=== PATIENT | male | born 1950 | race Caucasian/White ===

== ENCOUNTER 2017-09-04 10:18 | Observation (INO) ==
[2017-09-04] MEDS ORDERED: PROMETHAZINE INJ 25 MG in SODIUM CHLORIDE 0.9% 50 ML IV PRN (11:11)
[2017-09-04] MEDS ORDERED: chlorproMAZINE INJ 25 MG in SODIUM CHLORIDE 0.9% 100 ML IV PRN (11:11)
[2017-09-04] MEDS ORDERED: MYLANTA/LIDO VISC 2:1 300 ML BOTTLE SWISH/SPIT PRN (11:11)
[2017-09-04] MEDS ORDERED: LOPERAMIDE 2 MG CAPSULE PO PRN ×2 (11:11)
[2017-09-04] MEDS ORDERED: MAGNESIUM HYDROXIDE SUSP 30 ML UDCUP PO PRN (11:11)
[2017-09-04] MEDS ORDERED: ALPRAZolam 0.25 MG TABLET PO PRN (11:11)
[2017-09-04] MEDS ORDERED: chlorproMAZINE INJ 50 MG in SODIUM CHLORIDE 0.9% 100 ML IV PRN (11:11)
[2017-09-04] MEDS ORDERED: LACTULOSE 20 GM/30 ML UDCUP PO PRN (11:11)
[2017-09-04] MEDS ORDERED: chlorproMAZINE 25 MG TABLET PO PRN (11:11)
[2017-09-04] MEDS ORDERED: ONDANSETRON 4 MG/2 ML VIAL IV PRN (11:11)
[2017-09-04] MEDS ORDERED: diphenhydrAMINE CAP 25 MG CAPSULE PO PRN (11:11)
[2017-09-04] MEDS ORDERED: TEMAZEPAM 7.5 MG CAPSULE PO PRN (11:11)
[2017-09-04] MEDS ORDERED: ACETAMINOPHEN 325 MG TABLET PO PRN (11:11)
[2017-09-04] MEDS ORDERED: MYLANTA/LIDO VISC 2:1 300 ML BOTTLE SWISH/SWAL PRN (11:11)
[2017-09-04] MEDS ORDERED: guaiFENesin 200 MG/10 ML UDCUP PO PRN (11:11)
[2017-09-04] MEDS ORDERED: traMADol 50 MG TABLET PO PRN (11:11)
[2017-09-04] MEDS ORDERED: ALUMINUM/MAGNES/SIMETH MAX STR 30 ML UDCUP PO PRN (11:11)
[2017-09-04] MEDS ORDERED: BENZTROPINE 2 MG/2 ML AMP IV PRN (11:11)
[2017-09-04] MEDS ORDERED: SODIUM CHLORIDE 0.9% 1,000 ML IV ONE (11:18)
[2017-09-04] MEDS: SODIUM CHLORIDE 0.9% 1,000 ML IV SCH ×3 (14:00→21:22)
[2017-09-05] MEDS: SODIUM CHLORIDE 0.9% 1,000 ML IV SCH (03:31)
[2017-09-05 04:53] LABS: Basophils % 0.2 % (0.0-0.8); Eosinophils # 0.1 10*3/uL (0.0-0.87); Eosinophils % 2.6 % (0.00-10.9); Hematocrit 43.7 VOL% (42.0-52.0); Immature Granulocytes % 0.2 %; Immature Granulocytes Absolute 0.01 #; Lymphocytes # 0.6 10*3/uL (1.4-4.0); Lymphocytes % 14.4 % (21.2-54.2); Mean Corpuscular Hemoglobin 29 PG (27-34); Mean Corpuscular Volume 91.2 FL (87-102); Mean Platelet Volume 11.3 FL (9.6-12.0); Monocytes # 0.5 10*3/uL (0.11-0.8); Monocytes % 12.3 % (1.7-12.7); Neutrophils # 2.9 10*3/uL (1.4-7.4); Neutrophils % 70.3 % (38.7-73.9); Platelet Count 158 T/CUMM (130-400); Red Blood Count 4.79 MC/CUMM (3.8-5.5); Red Cell Distribution Width 14.6 % (9.3-17.3); White Blood Count 4.2 T/CUMM (4-12)
[2017-09-05 05:22] LABS: Albumin 2.2 G/DL (3.4-5.0); Bilirubin,Total 0.6 MG/DL (0.2-1.0); Calcium 7.6 MG/DL (8.5-10.1); Osmolality,Calculated 278.4 MOS/KG (273-304); Total Protein 5.4 G/DL (6.4-8.3)
[2017-09-05] MEDS: PANTOPRAZOLE 40 MG TABLET PO SCH (10:30)
[2017-09-05] MEDS: predniSONE 5 MG TABLET PO SCH (10:30)
[2017-09-06] MEDS: PANTOPRAZOLE 40 MG TABLET PO SCH (08:43)
[2017-09-06] MEDS: predniSONE 5 MG TABLET PO SCH (08:43)
[2017-09-06 11:16] VITALS: BP 142/68
== END 2017-09-06 11:30 | disposition hospice, home (50) ==
LOC: N.4E
PROVIDERS: ADMIT Internal Medicine Hematology & Oncology; ATTEND Internal Medicine Hematology & Oncology